=== PATIENT | female | born 1995 | race African-American/Black ===

== ENCOUNTER 2017-06-20 20:04 | Emergency (ER) | payer BC, OTHER ==
[~2017-06-20] VITALS: Ht 162.6 cm; Wt 101.2 kg
--- NOTE | 2017-06-20 20:29 | ED GU-Female ---
General Chief Complaint: -Female Stated Complaint: CRAMPING/DIZZINESS/SHAKING WITH IUD Nursing Triage Note: pt presents to er with complaint of abd cramping. states it is more severe than her normal period cramping Nursing Sepsis Screen: No Definite Risk Source: patient Exam Limitations: no limitations History of Present Illness Date Seen by Provider: June 20, 2017 Time Seen by Provider: 20:27 Initial Comments To ER with reports of suprapubic abdominal cramping and pain. She's had some nausea. This began about 4 hours ago. She does have an IUD. IUD was placed about a year ago in [place]. She typically has regular periods she states, most recently on the fifth of last month, started with some spotting today. Timing/Duration: constant Severity/Quality: moderate Location: suprapubic Radiation: suprapubic Activities at Onset: none Prior Genitourinary Problems: none Associated Symptoms: abdominal pain; No dysuria, No fever/chills, No lower back pain; nausea/vomiting; No urinary frequency Allergies and Home Medications Allergies Coded Allergies: soy (Unverified Allergy, Unknown, 06/20/17) Home Medications No Active Prescriptions or Reported Meds Patient Home Medication List Home Medication List Reviewed: Yes Review of Systems Constitutional: see HPI; No chills, No fever EENTM: see HPI Respiratory: no symptoms reported Cardiovascular: no symptoms reported Gastrointestinal: abdominal pain Genitourinary: see HPI Musculoskeletal: no symptoms reported Skin: no symptoms reported Psychiatric/Neurological: No Symptoms Reported Endocrine: No Symptoms Reported Past Valheuw-Tjital-Phjbek Hx Patient Social History Alcohol Use: Occasionally Uses Recreational Drug Use: No Smoking Status: Never a Smoker Recent Foreign Travel: No Contact w/Someone Who Travel: No Recent Infectious Disease Expo: No Recent Hopitalizations: No Immunizations Up To Date PED Vaccines UTD: Yes Seasonal Allergies Seasonal Allergies: No Past Medical History Surgeries: No Respiratory: No Cardiac: No 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 Genitourinary: No Gastrointestinal: No Chronic Back Pain HEENT: No Cancer: No Psychosocial: No Integumentary: No Blood Disorders: No Physical Exam Vital Signs Vital Signs - First Documented 06/20/17 20:08 Temp 97.5 Pulse 73 Resp 18 B/P (MAP) 140/83 (102) Pulse Ox 100 O2 Delivery Room Air Capillary Refill : Less Than 3 Seconds General Appearance: WD/WN, no apparent distress HEENT: PERRL/EOMI, normal ENT inspection Neck: non-tender, full range of motion Respiratory: normal breath sounds, no respiratory distress, no accessory muscle use Gastrointestinal: normal bowel sounds, soft, tenderness Extremities: normal range of motion, non-tender Neurologic/Psychiatric: alert, normal mood/affect, oriented x 3 Skin: normal color, warm/dry Progress/Results/Core Measures Suspected Sepsis Recent Fever Within 48 Hours: No Infection Criteria Present: None New/Unexplained Altered Menta: No Sepsis Screen: No Definite Risk SIRS Temperature:97.5 Pulse: 73 Respiratory Rate: 18 Laboratory Tests 06/20/17 21:00: White Blood Count 13.4H Blood Pressure 140 /83 Mean: 102 Laboratory Tests 06/20/17 21:00: Platelet Count 369 Results/Orders Lab Results Laboratory Tests Test 06/20/17 20:12 06/20/17 21:00 06/20/17 21:10 Range/Units Urine Color YELLOW Urine Clarity CLEAR Urine pH 6 5-9 Urine Specific [place] 1.015 L 1.016-1.022 Urine Protein NEGATIVE NEGATIVE Urine Glucose (UA) NEGATIVE NEGATIVE Urine Ketones NEGATIVE NEGATIVE Urine Nitrite NEGATIVE NEGATIVE Urine Bilirubin NEGATIVE NEGATIVE Urine Urobilinogen NORMAL NORMAL MG/DL Urine Leukocyte Esterase 1+ H NEGATIVE Urine RBC (Auto) 5+ H NEGATIVE Urine RBC 50-100 H /HPF Urine WBC RARE /HPF Urine Crystals NONE /LPF Urine Bacteria NEGATIVE /HPF Urine Casts NONE /LPF Urine Mucus NEGATIVE /LPF Urine Culture Indicated NO White Blood Count 13.4 H 4.3-11.0 10^3/uL Red Blood Count 4.68 4.35-5.85 10^6/uL Hemoglobin 13.8 11.5-16.0 G/DL Hematocrit 37 35-52 % Mean Corpuscular Volume 80 80-99 FL Mean Corpuscular Hemoglobin 30 25-34 PG Mean Corpuscular Hemoglobin Concent 37 H 32-36 G/DL Red Cell Distribution Width 12.6 10.0-14.5 % Platelet Count 369 130-400 10^3/uL Mean Platelet Volume 11.1 H 7.4-10.4 FL Neutrophils (%) (Auto) 77 H 42-75 % Lymphocytes (%) (Auto) 12 12-44 % Monocytes (%) (Auto) 5 0-12 % Eosinophils (%) (Auto) 5 0-10 % Basophils (%) (Auto) 0 0-10 % Neutrophils # (Auto) 10.4 H 1.8-7.8 X 10^3 Lymphocytes # (Auto) 1.6 1.0-4.0 X 10^3 Monocytes # (Auto) 0.7 0.0-1.0 X 10^3 Eosinophils # (Auto) 0.6 H 0.0-0.3 10^3/uL Basophils # (Auto) 0.1 0.0-0.1 10^3/uL My Orders Orders - PEREZ LAURENT BENDING [employer]LL HAND Cbc With Automated Diff (06/20/17 20:19) Wet Prep (06/20/17 20:19) Neisseria Gonorrhea Dna (06/20/17 20:19) Genital Culture (06/20/17 20:19) Urine Bedside (06/20/17 20:19) Junior Prep (06/20/17 20:19) Chlamydia Dna Urine Test (06/20/17 20:19) [id number] (Order) (06/20/17 20:24) Ketorolac Injection (Toradol Injection) (06/20/17 20:30) Fentanyl Injection (Sublimaze Injection (06/20/17 20:30) Ua Culture If Indicated (06/20/17 20:26) Chlamydia Trachomatis Swab (06/20/17 21:09) Rx-Tramadol Hcl (Rx-Ultram) (06/20/17 21:13) Ct Abdomen/Pelvis W (06/20/17 21:26) Iohexol Injection (Omnipaque 350 Mg/Ml 1 (06/20/17 21:30) Ns (Ivpb) (Sodium Chloride 0.9% Ivpb Bag (06/20/17 21:30) Medications Given in ED Current Medications Medications Dose Ordered Sig/Federico Route Start Time Stop Time Status Last Admin Dose Admin Fentanyl Citrate 50 mcg ONCE ONCE IVP 06/20/17 20:30 06/20/17 20:31 DC 06/20/17 21:04 50 MCG Iohexol 100 ml ONCE ONCE IV 06/20/17 21:30 06/20/17 21:31 DC 06/20/17 21:47 100 ML Ketorolac Tromethamine 15 mg ONCE ONCE IVP 06/20/17 20:30 5/2/18 20:31 DC 06/20/17 21:04 15 MG Sodium Chloride 80 ml ONCE ONCE IV 06/20/17 21:30 06/20/17 21:31 DC 06/20/17 21:47 80 ML Vital Signs/I&O 06/20/17 20:08 Temp 97.5 Pulse 73 Resp 18 B/P (MAP) 140/83 (102) Pulse Ox 100 O2 Delivery Room Air Capillary Refill : Less Than 3 Seconds Blood Pressure Mean: 102 Point of Care Testing Urine -Bedside: Negative Departure Impression Primary Impression: Pelvic cramping Additional Impression: PID (acute pelvic inflammatory disease) Disposition: HOME, SELF-CARE Condition: Stable Departure-Patient Inst. Decision time for Depature: 21:11 Referrals: WILLIE BARRIOS MD (PCP/Family) Primary Care Physician Patient Instructions: NO INSTRUCTIONS GIVEN Add. Discharge Instructions: 1. Medication as directed for pain 2. Warm compresses to the area, you may use ibuprofen or Midol for additional pain control. Follow-up with your regular doctor or [facility] later this week for recheck. Return to ER for fevers, uncontrollable pain or other concerning symptoms. Scripts Doxycycline Hyclate (Doxycycline Hyclate) 100 Mg Tablet 100 MG PO BID, #14 TAB Prov: PEREZ LAURENT APRN 06/20/17 PEREZ LAURENT APRN June 20, 2017 20:29
[2017-06-20] MEDS ORDERED: KETOROLAC 30 MG/ML VIAL IVP ONE (20:30)
[2017-06-20] MEDS ORDERED: fentaNYL INJECTION 100 MCG/2 ML AMP IVP ONE (20:30)
[2017-06-20 20:52] LABS: BILIRUBIN,URINE NEGATIVE (NEGATIVE); CLARITY,URINE CLEAR; COLOR,URINE YELLOW; GLUCOSE, URINE (UA) NEGATIVE (NEGATIVE); KETONES,URINE NEGATIVE (NEGATIVE); LEUKOCYTE ESTERASE ,URINE 1+ (NEGATIVE); NITRITE,URINE NEGATIVE (NEGATIVE); PH,URINE 6 (5-9); PROTEIN,URINE NEGATIVE (NEGATIVE); UROBILINOGEN,URINE NORMAL (NORMAL)
[2017-06-20 21:05] LABS: BACTERIA,URINE NEGATIVE /HPF; RBC,URINE 50-100 /HPF; WBC,URINE RARE /HPF
[2017-06-20 21:07] LABS: BASOPHILS # (AUTO) 0.1 10^3/uL (0.0-0.1); BASOPHILS % (AUTO) 0 % (0-10); EOSINOPHILS # (AUTO) 0.6 10^3/uL (0.0-0.3); EOSINOPHILS % (AUTO) 5 % (0-10); HEMATOCRIT 37 % (35-52); HEMOGLOBIN 13.8 G/DL (11.5-16.0); LYMPHOCYTES # (AUTO) 1.6 X 10^3 (1.0-4.0); LYMPHOCYTES % (AUTO) 12 % (12-44); MEAN CORPUSCULAR HEMOGLOBIN 30 PG (25-34); MEAN CORPUSCULAR HGB CONC 37 G/DL (32-36); MEAN CORPUSCULAR VOLUME 80 FL (80-99); MEAN PLATELET VOLUME 11.1 FL (7.4-10.4); MONOCYTES # (AUTO) 0.7 X 10^3 (0.0-1.0); MONOCYTES % (AUTO) 5 % (0-12); NEUTROPHILS # (AUTO) 10.4 X 10^3 (1.8-7.8); NEUTROPHILS % (AUTO) 77 % (42-75); PLATELET COUNT 369 10^3/uL (130-400); RED BLOOD COUNT 4.68 10^6/uL (4.35-5.85); RED CELL DISTRIBUTION WIDTH 12.6 % (10.0-14.5); WHITE BLOOD COUNT 13.4 10^3/uL (4.3-11.0)
[2017-06-20] MEDS ORDERED: RX-TRAMADOL 50 MG (ULTRAM) TAB PPK#4 PO STA (21:13)
[2017-06-20] MEDS ORDERED: NS 100 ML (IVPB) BAG IV ONE (21:30)
[2017-06-20] MEDS ORDERED: IOHEXOL 350 MG/ML 100 ML (OMNIPAQUE 350) VIAL IV ONE (21:30)
--- NOTE | 2017-06-20 22:09 | Diagnostic Imaging Report ---
PROCEDURE: CT abdomen and pelvis with contrast. TECHNIQUE: Multiple contiguous axial images were obtained through the abdomen and pelvis after administration of intravenous contrast. DATE: June 20, 2017. COMPARISON: None. INDICATION: 22-year-old female, severe abdominal pain. FINDINGS: The visualized portions of the lung bases are clear. The heart is not enlarged. There is no pericardial effusion. The liver is normal in size and contour. There is a 4 mm low-attenuation lesion in the right lobe of the liver on axial image 12 which is too small to characterize. The main, right, and left portal veins are patent. The gallbladder is unremarkable. There is no intrahepatic or extrahepatic bile duct dilation. The main pancreatic duct is not abnormally dilated. The pancreatic parenchyma is unremarkable in appearance. The spleen is normal in size. The adrenal glands are unremarkable. Unremarkable appearance of the renal parenchyma. The urinary collecting systems are not distended. There is no identified renal or ureteral stone. The urinary bladder wall is slightly diffusely thickened which may potentially reflect cystitis and/or chronic outlet obstruction. There is an intrauterine contraceptive device projecting within the midline uterus, likely within the endometrial cavity. There is a trace to small amount of free pelvic fluid which potentially may relate to a physiologic finding. The intestinal tract is not distended. The appendix is not well seen. There are no identified secondary findings to specifically suggest acute appendicitis. There is no free intraperitoneal air. There is no drainable fluid collection. There is no identified abnormally enlarged lymph node within the abdomen or pelvis which meets CT size criteria for adenopathy. There is a linear lucency within the left iliac bone with narrow zone of transition and thin sclerotic margins. This is compatible with benign etiology. There is no identified acute bony abnormality. IMPRESSION: CT ABDOMEN AND PELVIS. 1. No identified acute abnormality within the abdomen or pelvis. 2. Intrauterine contraceptive device within the midline uterus, likely in the endometrial cavity. 3. Trace to small amount of free pelvic fluid which is potentially a physiologic etiology. 4. A 4 mm low-attenuation lesion in the right lobe of the liver too small to characterize. Dictated by: Dictated on workstation # [id number]
[2017-06-20] MEDS ORDERED: DOXY100T2 PO (22:12)
[2017-06-20] MEDS ORDERED: cefTRIAXone INJECTION 1,000 MG in NS (IVPB) 100 ML IV ONE (22:15)
[2017-06-20 22:59] VITALS: BP 140/83
== END 2017-06-20 22:58 | disposition home or self-care (01) ==
LOC: ER 20:07
DX: N73.9 Female pelvic inflammatory disease, unspecified (principal); Z97.5 Presence of (intrauterine) contraceptive device
CPT/HCPCS: 36415; 74177; 81000; 84703; 85025; 87070; 87210; 87220; 87491; 87591; 96365; 96375